=== PATIENT | female | born 1990 | race Caucasian/White ===

== ENCOUNTER 2017-12-12 05:10 | Emergency (ER) | payer BC ==
[~2017-12-12] VITALS: Ht 162.5 cm; Wt 90.7 kg
--- NOTE | ~2017-12-12 | EKG ---
[place], [place] ELECTROCARDIOGRAM REPORT NAME: GALNIDO ORELLANA UNIT #: [id number] ROOM: DOCTOR: EPIPHANY DRAFT REPORT BIRTHDATE: [birth year] [facility] Test Date: 2017-12-12 Test Time: 05:52:41 Pat Name: GALINDO ORELLANA Department: Room: Gender: F [employer] Diagnostic Technician: DEMARCO : 1990 Requested By: PETR CORNEJO Order Number: [id number] Reading MD: Shane Cruz MD Measurements Intervals [place] Rate: 83 P: 56 CT: 146 QRS: 4 QRSD: 90 T: 12 QT: 370 QTc: 435 Interpretive Statements Sinus rhythm Borderline T wave abnormalities Electronically Signed On 12-12-2017 8:54:42 PDT by Shane Cruz MD CM:EKGRPT:ELECTROCARDIOGRAM REPORT [id number] PETR GALLEGO DRAFT REPORT PETR CORNEJO DO
[~2017-12-12 05:10] MED LIST: ACTICLATE150 MG PO; ALLEGRA-D 12 HO1 TER PO; AUGMENTIN 500 M1 TAB PO; BACTRIM DS 8001 TA1 PO; CLEOCIN150 MG PO; IRON325 M3 PO; MECLIZINE HCL25 M2 PO; MOTRIN800 MG PO; Motrin,Rufen800 MG PO; NKHM; ULTRAM50 MG PO; VICODIN 5/500 505 MG PO
[2017-12-12 06:07] LABS: BASO # 0.1 10*3/uL (0.0-0.1); BASO % 0.5 % (0.0-1.0); EOS # 0.5 10*3/uL (0.0-0.4); EOS % 3.6 % (1.0-4.0); HEMATOCRIT 37.9 % (37.0-47.0); HEMOGLOBIN 12.7 g/dl (12.0-16.0); LYMPH # 4.7 10*3/uL (1.3-4.4); LYMPH % 31.7 % (27.0-41.0); MEAN CELL VOLUME 87.3 fl (81.0-99.0); MEAN CORPUSCULAR HGB 29.3 pg (27.0-31.0); MEAN CORPUSCULAR HGB CONC 33.5 g/dl (33.0-37.0); MEAN PLATELET VOLUME 11.2 fl (9.6-12.3); MONO # 0.9 10*3/uL (0.1-1.0); MONO % 6.1 % (3.0-9.0); NEUT # 8.6 10*3/uL (2.3-7.9); NEUT % 57.8 % (47.0-73.0); PLATELET COUNT AUTOMATED 217 10*3/uL (130-400); RED BLOOD COUNT 4.34 10*6/uL (4.10-5.10); RED CELL DISTRI WIDTH 12.9 % (0-14.5); WHITE BLOOD COUNT 14.8 10*3/uL (4.8-10.8)
[2017-12-12 06:08] LABS: BILIRUBIN NEGATIVE (NEGATIVE); BLOOD NEGATIVE (NEGATIVE); CLARITY CLOUDY (CLEAR); COLOR YELLOW (YELLOW); GLUCOSE NEGATIVE (NEGATIVE); KETONE TRACE (NEGATIVE); LEUKO ESTERASE TRACE (NEGATIVE); NITRITE NEGATIVE (NEGATIVE); SPECIFIC GRAVITY 1.025 (1.005-1.030); UROBILINOGEN 0.2 E.U./dl (0.2-1.0)
[2017-12-12 06:33] LABS: ALBUMIN 3.6 gm/dl (3.1-4.5); ALKALINE PHOSPHATASE 84 U/L (45-117); BACTERIA 3+; BUN 7 mg/dl (7-24); CHLORIDE 104 mmol/L (98-107); CREATININE 0.94 mg/dL (0.55-1.02); EPITHELIAL CELLS 15-20; LIPASE 188 U/L (73-393); POTASSIUM 3.6 mmol/L (3.5-5.1); SGOT/AST 22 IU/L (3-35); SGPT/ALT 30 U/L (12-78); SODIUM 139 mmol/L (136-145); TOTAL PROTEIN 7.7 gm/dL (6.4-8.2); WBC 21-30 wbc/hpf (0-5)
[2017-12-12 06:39] LABS: TROPONIN I < 0.015 ng/ml (<0.045)
[2017-12-12] MEDS ORDERED: SEPTDS PO (07:06)
[2017-12-12] MEDS ORDERED: NEXIUM20 M1 PO (07:06)
== END 2017-12-12 07:35 | disposition home or self-care (01) ==
LOC: ED 05:10
PROVIDERS: Emergency Medicine
DX: N39.0 Urinary tract infection, site not specified (principal); K21.9 Gastro-esophageal reflux disease without esophagitis; J45.909 Unspecified asthma, uncomplicated; Z79.899 Other long term (current) drug therapy; Z87.891 Personal history of nicotine dependence

== ENCOUNTER 2018-07-16 22:40 | Emergency (ER) | payer BC ==
[~2018-07-16] VITALS: Ht 165.1 cm; Wt 93.9 kg
[~2018-07-16 22:40] MED LIST changes: +NEXIUM20 M1 PO; +SEPTDS PO
[2018-07-16] MEDS ORDERED: SEPTDS PO (23:02)
[2018-07-16] MEDS ORDERED: FLONASE ALLERG9.9 ML NAS (23:02)
[2018-10-24] MEDS ORDERED: PREDNISONE10 MG PO (18:47)
[2018-10-24] MEDS ORDERED: VISTARIL25 MG PO (18:47)
== END 2018-07-16 23:30 | disposition home or self-care (01) ==
LOC: ED 22:40
DX: J01.90 Acute sinusitis, unspecified (principal); Z79.899 Other long term (current) drug therapy

== ENCOUNTER 2021-03-01 21:30 | Emergency (ER) | payer BC ==
[~2021-03-01] VITALS: Ht 165.1 cm; Wt 96.2 kg
[~2021-03-01 21:30] MED LIST changes: +FLONASE ALLERG9.9 ML NAS; +PREDNISONE10 MG PO; +VISTARIL25 MG PO
[2021-03-01] MEDS ORDERED: AMOXICILLIN875 MG PO (22:00)
[2021-03-01] MEDS ORDERED: ONDANSETRON HYDR4 M1 PO (22:02)
[2021-03-02] MEDS ORDERED: KETOROLAC10 MG PO (02:52)
== END 2021-03-01 22:31 | disposition home or self-care (01) ==
LOC: ED 21:30
DX: K04.7 Periapical abscess without sinus (principal); H66.92 Otitis media, unspecified, left ear; Z79.899 Other long term (current) drug therapy

== ENCOUNTER 2021-03-02 02:26 | Emergency (ER) | payer BC ==
[~2021-03-02] VITALS: Ht 172.7 cm; Wt 99.8 kg
[~2021-03-02 02:26] MED LIST changes: +AMOXICILLIN875 MG PO; +ONDANSETRON HYDR4 M1 PO
[2021-03-02] MEDS ORDERED: KETOROLAC10 MG PO (02:52)
== END 2021-03-02 03:02 | disposition home or self-care (01) ==
LOC: ED 02:26
DX: K02.9 Dental caries, unspecified (principal); F17.200 Nicotine dependence, unspecified, uncomplicated

== ENCOUNTER 2022-01-24 05:40 | Inpatient (IN) | payer BC ==
[~2022-01-24] VITALS: Ht 162.6 cm; Wt 102.1 kg
[~2022-01-24 05:40] MED LIST changes: +KETOROLAC10 MG PO
[2022-01-24 05:58] VITALS: BP 118/81
[2022-01-24 07:05] LABS: BASO # 0.1 10*3/uL (0.0-0.1); BASO % 0.7 % (0.0-1.0); EOS # 0.6 10*3/uL (0.0-0.4); EOS % 5.1 % (1.0-4.0); LYMPH # 2.6 10*3/uL (1.3-4.4); LYMPH % 24.3 % (27.0-41.0); MEAN CELL VOLUME 89.9 fl (81.0-99.0); MEAN CORPUSCULAR HGB 30.2 pg (27.0-31.0); MEAN CORPUSCULAR HGB CONC 33.6 g/dl (33.0-37.0); MEAN PLATELET VOLUME 10.5 fl (9.6-12.3); MONO # 0.6 10*3/uL (0.1-1.0); MONO % 5.3 % (3.0-9.0); NEUT % 64.3 % (47.0-73.0); PLATELET COUNT AUTOMATED 214 10*3/uL (130-400); RED BLOOD COUNT 4.34 10*6/uL (4.10-5.10); RED CELL DISTRI WIDTH 12.8 % (0-14.5); WHITE BLOOD COUNT 10.9 10*3/uL (4.8-10.8)
[2022-01-24 07:28] LABS: ALKALINE PHOSPHATASE 102 U/L (45-117); BUN 11 mg/dl (7-24); CHLORIDE 110 mmol/L (98-107); LIPASE 212 U/L (73-393); SGOT/AST 23 IU/L (3-35); SGPT/ALT 43 U/L (12-78); SODIUM 141 mmol/L (136-145); TOTAL PROTEIN 7.1 gm/dL (6.4-8.2)
[2022-01-24 07:47] LABS: BILIRUBIN Negative (Negative); BLOOD Trace-Intact (Negative); CLARITY Clear (Clear); COLOR Yellow (Yellow); GLUCOSE Negative (Negative); KETONE Negative (Negative); LEUKO ESTERASE Negative (Negative); NITRITE Negative (Negative); UROBILINOGEN 0.2 E.U./dl (0.0-1.0)
[2022-01-24 08:22] LABS: BACTERIA 3+
[2022-01-24 08:25] LABS: RBC 0-2 rbc/hpf (0-2)
[2022-01-24 08:26] LABS: YEAST TRACE
[2022-01-24 11:00] VITALS: BP 120/78
[2022-01-24 16:00] VITALS: BP 111/73; BP 111/78
[2022-01-24 20:00] VITALS: BP 112/74
[2022-01-25] VITALS (13 sets, daily range): BP systolic 109–139; BP diastolic 53–79
[2022-01-26] VITALS: BP 109/68
[2022-01-26 08:00] VITALS: BP 108/54
[2022-01-26] MEDS ORDERED: HYDROCODONE-AC1 EAC1 PO (11:51)
[2022-01-26] MEDS ORDERED: COLACE100 MG PO (11:51)
[2022-01-26] MEDS ORDERED: ZUPLENZ4 M1 PO (11:55)
[2022-01-26] MEDS ORDERED: ONDANSETRON4 MG/2 M3 PO (11:55)
== END 2022-01-26 17:17 | disposition home or self-care (01) | DRG 419 ==
LOC: ED 05:40 → EDHOLD 08:33 → 5E 08:33
PROVIDERS: Emergency Medicine; ADMIT Student in an Organized Health Care Education/Training Program; ATTEND Student in an Organized Health Care Education/Training Program
PROC: 0FT44ZZ Resection of Gallbladder, Percutaneous Endoscopic Approach (ICD-10-PCS; principal; 2022-01-25)
DX: K80.00 Calculus of gallbladder with acute cholecystitis without obstruction (principal); K21.9 Gastro-esophageal reflux disease without esophagitis; R73.9 Hyperglycemia, unspecified; E87.8 Other disorders of electrolyte and fluid balance, not elsewhere classified; R31.9 Hematuria, unspecified; E66.9 Obesity, unspecified; K76.0 Fatty (change of) liver, not elsewhere classified; Z68.38 Body mass index [BMI] 38.0-38.9, adult; Z83.3 Family history of diabetes mellitus; Z82.49 Family history of ischemic heart disease and other diseases of the circulatory system